=== PATIENT | female | born 1955 | race Caucasian/White ===

== ENCOUNTER 2021-07-03 07:45 | Emergency (ER) | payer MEDICARE ==
[~2021-07-03 07:45] MED LIST: CYCLOBENZAPRINE10 MG PO
[2021-07-03 08:59] LABS: CORONAVIRUS 2019 SARS-COV-2 NEGATIVE (NEGATIVE); INFLUENZA A NAA NEGATIVE (NEGATIVE)
[2021-07-03 09:02] LABS: BASOPHIL 0.4 % (0-2); EOSINOPHIL 0.4 & (0-7); HCT 37.3 % (37.0-47.0); HGB 12.7 g/dl (12.5-16.0); LYMPHOCYTE 8.1 % (15-48); MCH 31.5 pg (25.0-31.0); MCV 92.6 fL (78.0-100.0); MONOCYTE 15.4 % (0-12); MPV 10.6 fL (6.0-9.5); NEUTROPHIL 75.5 % (41-80); PLT 135 K/uL (150-400); RBC 4.03 M/uL (4.20-5.40); RDW 14.1 % (11.5-14.0); WBC 4.56 K/uL (4.0-10.5)
[2021-07-03 09:25] LABS: ALBUMIN 3.4 g/dL (3.4-5.0); BILIRUBIN - TOTAL 1.2 mg/dL (0.2-1.0); BUN/CREAT RATIO (CALC) 17.4 RATIO; CREATININE 0.86 mg/dL (0.51-0.95); GLOBULIN (CALCULATION) 2.8 g/dL; POTASSIUM 3.9 mmol/L (3.5-5.1); TOTAL PROTEIN 6.2 g/dL (6.4-8.2)
[2021-07-03 10:04] LABS: BILIRUBIN 1+ mg/dL (NEGATIVE); BLOOD NEGATIVE Ery/uL (NEGATIVE); CLARITY CLEAR (CLEAR); COLOR YELLOW (YELLOW); GLUCOSE (U) NORMAL (NORMAL); LEUKOCYTES 2+ Leu/uL (NEGATIVE); NITRITE POSITIVE (NEGATIVE); PROTEIN 2+ mg/dL (NEGATIVE); SPECIFIC GRAVITY 1.025 (1.001-1.030); UROBILINOGEN 0.2 mg/dL (0.2-1.0); pH 5.5 (5.0-9.0)
[2021-07-03 10:10] LABS: BACTERIA 4+; URINARY RBC RARE; URINARY WBC 20-50
[2021-07-03] MEDS ORDERED: MELOXICAM7.5 MG PO (10:19)
[2021-07-03] MEDS ORDERED: ONDANSETRON ODT4 MG PO (10:19)
[2021-07-03] MEDS ORDERED: CIPRO500 MG PO (10:19)
== END 2021-07-03 11:42 | disposition home or self-care (01) ==
LOC: FER 07:45
PROVIDERS: Internal Medicine
DX: N12 Tubulo-interstitial nephritis, not specified as acute or chronic (principal); M25.561 Pain in right knee; M17.11 Unilateral primary osteoarthritis, right knee; I10 Essential (primary) hypertension; Z20.822 Contact with and (suspected) exposure to COVID-19; Z85.048 Personal history of other malignant neoplasm of rectum, rectosigmoid junction, and anus; Z98.890 Other specified postprocedural states; Z88.5 Allergy status to narcotic agent; Z95.1 Presence of aortocoronary bypass graft; Z88.8 Allergy status to other drugs, medicaments and biological substances
CPT/HCPCS: 36415; 71045; 73560; 80053; 81001; 83690; 83880; 84145; 84484; 85025; 87077; 87088; 87186; 93005; J0696; J2405; U0002